=== PATIENT | female | born 1965 | race Caucasian/White ===

== ENCOUNTER 2018-01-20 13:03 | Day surgery (SDC) | payer BC ==
[2018-01-19 10:51] VITALS: BMI 22.3
[~2018-01-20 13:03] MED LIST: LACTATED RINGERS 1,000 ML IV SCH
[2018-01-20 13:24] VITALS: TEMP 98.6
[2018-01-20] MEDS ORDERED: LIDOCAINE 1% 20 ML VIAL (10MG/ML) FOR IV START SQ ONE (13:26)
[2018-01-20] MEDS ORDERED: GLUCAGON 1 MG/ML VIAL ONE (13:56)
[2018-01-20] MEDS ORDERED: PROPOFOL 10 MG/ML 20 ML VIAL IV ONE (13:56)
--- NOTE | 2018-01-20 13:58 | P.GSHP ---
History of Present Illness H&P Date: 01/20/18 Chief Complaint: Screening colonoscopy This a 52-year-old female referred from Dharmesh Christensen. Patient rents today for screening colonoscopy. She's never is had a colonoscopy before. Past Medical History Additional Past Medical History / Comment(s): migraines, History of Any Multi-Drug Resistant Organisms: None Reported Past Surgical History: Orthopedic Surgery Additional Past Surgical History / Comment(s): dionna wrist ganglion cyst Past Anesthesia/Blood Transfusion Reactions: Motion Sickness Smoking Status: Never smoker - Past Family History Mother Family Medical History: No Reported History Medications and Allergies Home Medications Medication Instructions Recorded Confirmed Type Paxil(Dose Unknown) 1 tab PO QAM 01/19/18 01/19/18 History SUMAtriptan SUCCINATE [Imitrex] 100 mg PO BID PRN 01/19/18 01/19/18 History Topiramate [Topamax] 100 mg PO HS 01/19/18 01/20/18 History Allergies Allergy/AdvReac Type Severity Reaction Status Date / Time Iodinated Contrast- Oral and Allergy Nausea & Verified 01/20/18 13:20 IV Dye Vomiting [Iodinated Contrast Media - IV Dye] Surgical - Exam Vital Signs Temp Pulse Resp BP Pulse Ox 98.6 F 77 16 134/82 97 01/20/18 13:24 01/20/18 13:24 01/20/18 13:24 01/20/18 13:24 01/20/18 13:24 - General well developed, no distress - Eyes PERRL - ENT normal pinna - Neck no masses - Respiratory normal expansion - Cardiovascular Rhythm: regular - Abdomen Abdomen: soft, non tender Assessment and Plan Plan: We'll perform screening colonoscopy
--- NOTE | 2018-01-20 14:21 | P.OP ---
Date of Procedure: 01/20/18 Preoperative Diagnosis: Screening colonoscopy Postoperative Diagnosis: Normal colonoscopy Procedure(s) Performed: Colonoscopy Anesthesia: MAC Surgeon: Andrey Spencer Pathology: none sent Condition: stable Disposition: PACU Description of Procedure: PROCEDURE: The patient was placed on the endoscopy table in the lateral position. Digital rectal examination was performed which revealed no abnormalities. The prostate was symmetrical without nodules. Flexible colonoscope was then placed in the patient's anus and passed throughout the entire colon. The ileocecal valve was visualized. The cecum, ascending, transverse, descending and sigmoid colon were normal. The rectum was normal as well. There were no masses, polyps or diverticula noted in the entire colon. SUMMARY OF FINDINGS: Normal colonoscopy.
[2018-01-20 14:34] VITALS: RESP 20
[2018-01-20 14:50] VITALS: BP 122/69; PULSE 70
== END 2018-01-20 14:52 | disposition home or self-care (01) ==
LOC: ORWHC2ENDO 13:03
PROVIDERS: ATTEND Surgery
DX: Z12.11 Encounter for screening for malignant neoplasm of colon (principal); G43.909 Migraine, unspecified, not intractable, without status migrainosus; Z91.041 Radiographic dye allergy status; Z79.899 Other long term (current) drug therapy
CPT/HCPCS: J1610; J2704; G0121

== ENCOUNTER 2018-05-21 19:13 | Emergency (ER) | payer BC ==
[2018-05-21] MEDS ORDERED: AMOXIC-POT CLAV 875-125MG 1 EACH TAB PO STA (19:31)
[2018-05-21] MEDS ORDERED: LORazepam 1 MG TAB PO STA (19:31)
[2018-05-21] MEDS ORDERED: DIPH,PERTUS(ACELL)TETVAC-LF 0.5 ML VIAL IM ONE (19:31)
[2018-05-21] MEDS ORDERED: IBUPROFEN 600 MG TAB PO STA (19:32)
--- NOTE | 2018-05-21 19:56 | ED ---
Animal Bite HPI - General Chief Complaint: Animal Bite Stated Complaint: dog bite Time Seen by Provider: 05/21/18 19:14 Source: patient, EMS, RN notes reviewed Mode of arrival: EMS Limitations: no limitations - History of Present Illness Initial Comments: This is a 52-year-old female who presents to the emergency department with chief complaint of dog bite. Patient was transported to the emergency department via EMS. 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 She states the dogs are up to date with vaccinations. She states that she keeps the dogs separate from her own dogs by keeping them in the laundry room. She was in the laundry room doing laundry and became upset when the two bulldogs were playing too hard. She began to calm down and believes the dogs "sensed her weakness." She states that one of the bulldogs jumped up on her chest and she realized the dog was no longer playing. She tried to jump up on the washing machine but the dog latched on to her right inner thigh then let go. She states that she was able to get the 2 dogs into the garage, however states that her phone was also in the garage. She states that she went outside to look for help but none of her neighbors were home. She was able to flag down a couple of cars going by on the road. EMS and police department were contacted. She states that she is not up to date with tetanus. States she feels shaken up. She is able to ambulate on her right leg. Denies fevers or chills, chest pain or shortness of breath, abdominal pain, nausea or vomiting. - Related Data Home Medications Medication Instructions Recorded Confirmed Paxil(Dose Unknown) 1 tab PO QAM 01/19/18 01/19/18 SUMAtriptan SUCCINATE [Imitrex] 100 mg PO BID PRN 01/19/18 01/19/18 Topiramate [Topamax] 100 mg PO HS 01/19/18 01/20/18 Previous Rx's Medication Instructions Recorded Amoxicillin/Potassium Clav 1 tab PO Q12HR #14 tab 05/21/18 [Augmentin 875-125 Tablet] Allergies Allergy/AdvReac Type Severity Reaction Status Date / Time Iodinated Contrast- Oral and Allergy Nausea & Verified 01/20/18 13:20 IV Dye Vomiting [Iodinated Contrast Media - IV Dye] Review of Systems ROS Statement: Those systems with pertinent positive or pertinent negative responses have been documented in the HPI. ROS Other: All systems not noted in ROS Statement are negative. Past Medical History Additional Past Medical History / Comment(s): migraines, History of Any Multi-Drug Resistant Organisms: None Reported Past Surgical History: Orthopedic Surgery Additional Past Surgical History / Comment(s): dionna wrist ganglion cyst Past Anesthesia/Blood Transfusion Reactions: Motion Sickness Past Psychological History: No Psychological Hx Reported Smoking Status: Never smoker - Past Family History Mother Family Medical History: No Reported History General Exam - General Exam Comments Initial Comments: General: Awake and alert, well-developed; in no apparent distress. Patient is shaky and anxious. HEENT: Head atraumatic, normocephalic. Pupils are equal, round and reactive to light. Extraocular movements intact. Oropharynx moist without erythema or exudate. Neck: Supple. Normal ROM. Cardiovascular: Regular rate and rhythm. No murmurs, rubs or gallops. Chest symmetrical. Respiratory: Lungs clear to auscultation bilaterally. No wheezes, rales or rhonchi. Normal respiratory effort with no use of accessory muscles. Musculoskeletal: Normal range of motion of the right lower extremity, however pain is elicited with lifting her leg off the bed and bending her right knee. Sensation is intact. Pedal pulses are 2+ equal and palpable bilaterally. Skin: There are two 1.0 cm puncture wounds and two 0.5 cm puncture wounds to the right medial thigh. Surrounding erythema and ecchymosis. There are 2 approximately 2 cm in length transverse puncture wounds distal posterior thigh. There is an approximately 1 cm puncture wound to the mid lateral aspect of the right calf. There is a superficial approximately 1 cm in length puncture wound to the proximal posteriorolateral right thigh with surrounding erythema and ecchymosis. Active bleeding of all punctures. Neurological: Alert and oriented x3. CN II-XII grossly intact. Speech is fluent and answers are appropriate. No focal neuro deficits. Psychiatric: Anxious. No overt signs of depression. Course Vital Signs 05/21/18 05/21/18 19:25 21:22 Temperature 98.1 F 98.6 F Pulse Rate 73 79 Respiratory 19 20 Rate Blood Pressure 189/77 123/73 O2 Sat by Pulse 97 97 Oximetry Procedures - Laceration Laceration #1 Consent Obtained: verbal consent Indication: laceration Site: lower extremity (puncture right inner thigh ) Size (cm): 1 Description: linear Depth: simple, single layer Anesthetic Used: lidocaine 1% Anesthesia Technique: local infiltration Amount (mls): 1 Pre-repair: wound explored, irrigated extensively, deep structures intact Type of Sutures: nylon Size of Sutures: 4-0 Number of Sutures: 1 Technique: simple, interrupted Complications: bleeding Patient Tolerated Procedure: well, no complications Laceration #2 Consent Obtained: verbal consent Indication: laceration Site: lower extremity (puncture right inner thigh) Size (cm): 1 Description: linear Depth: simple, single layer Anesthetic Used: lidocaine 1% Anesthesia Technique: local infiltration Amount (mls): 1 Pre-repair: wound explored, irrigated extensively, deep structures intact Type of Sutures: nylon Size of Sutures: 4-0 Number of Sutures: 1 Technique: simple, interrupted Complications: bleeding Laceration #3 Consent Obtained: verbal consent Indication: laceration Site: lower extremity (distal posterior right thigh ) Size (cm): 2 Description: linear Depth: simple, single layer Anesthetic Used: lidocaine 1% Anesthesia Technique: local infiltration Amount (mls): 1 Pre-repair: wound explored, irrigated extensively, deep structures intact Type of Sutures: nylon Size of Sutures: 4-0 Number of Sutures: 1 Technique: simple, interrupted Complications: bleeding Patient Tolerated Procedure: well, no complications Laceration #4 Consent Obtained: verbal consent Indication: laceration Site: lower extremity (right distal posterior thigh ) Size (cm): 2 Description: linear Depth: simple, single layer Anesthetic Used: lidocaine 1% Anesthesia Technique: local infiltration Amount (mls): 1 Pre-repair: wound explored, irrigated extensively, deep structures intact Type of Sutures: nylon Size of Sutures: 4-0 Number of Sutures: 1 Technique: simple, interrupted Complications: bleeding Patient Tolerated Procedure: well, no complications Laceration #5 Consent Obtained: verbal consent Indication: laceration Site: lower extremity (mid lateral right calf) Size (cm): 1 Description: linear Depth: simple, single layer Anesthetic Used: lidocaine 1% Anesthesia Technique: local infiltration Amount (mls): 1 Pre-repair: wound explored, irrigated extensively, deep structures intact Type of Sutures: nylon Size of Sutures: 4-0 Number of Sutures: 1 Technique: simple, interrupted Complications: bleeding Patient Tolerated Procedure: well, no complications Medical Decision Making - Medical Decision Making This is a 52-year-old female who presented to the emergency department for evaluation following a dog bite. Dog is up-to-date with vaccinations. Patient sustained multiple puncture wounds to the right thigh and one puncture wound to the right calf. There is diffuse ecchymosis and tenderness of the right thigh and calf. Patient is neurovascularly intact. Wounds were extensively irrigated with normal saline and iodine. Single loose sutures were placed in the larger puncture wounds for a total of 5 sutures. Recommended removal of sutures in 10-14 days. X-rays of the right femur, tibia and fibula revealed extensive soft tissue injury, however no acute osseous abnormalities. Patient was made up-to-date with tetanus vaccination. She was given pain medication and 1 dose of Augmentin. Vital signs are stable and patient is in no acute distress. She will be discharged home with further prescription for Augmentin. Patient is in agreement with plan and voices understanding. All questions answered. - Radiology Data Radiology results: report reviewed, image reviewed X-ray right femur impression: No osseous abnormality. Extensive soft tissue injury medial right lower thigh. X-ray right tibia and fibula impression: No acute osseous abnormality lower extremity. Mild soft tissue injury lateral leg may be present. As read by Dr. Case Disposition Clinical Impression: Dog bite Disposition: HOME SELF-CARE Condition: Good Instructions: Animal Bite (ED) Additional Instructions: Please take medications as prescribed. Please follow up with primary care provider within 1-2 days. Return to emergency department if symptoms should worsen or any concerns arise. Prescriptions: Amoxicillin/Potassium Clav [Augmentin 875-125 Tablet] 1 tab PO Q12HR #14 tab Is patient prescribed a controlled substance at d/c from ED?: No Referrals: Ginna Valdez DO [Primary Care Provider] - 1-2 days Time of Disposition: 21:30
[2018-05-21] MEDS ORDERED: KETOROLAC 30 MG/ML 1 ML VIAL IM STA (20:05)
--- NOTE | 2018-05-21 20:26 | XR ---
EXAMINATION TYPE: XR femur RT DATE OF EXAM: 05/21/2018 COMPARISON: NONE HISTORY: Right marked puncture wound dog bite TECHNIQUE: 2 view right femur FINDINGS: No acute fractures are evident. Extensive soft tissue injury along the medial lower extremi ty. No radiopaque foreign bodies are evident. IMPRESSION: 1. No osseous abnormality. 2. Extensive soft tissue injury medial right lower thigh
--- NOTE | 2018-05-21 20:27 | XR ---
EXAMINATION TYPE: XR tibia fibula RT DATE OF EXAM: 05/21/2018 COMPARISON: NONE HISTORY: Dog bite 5 leg TECHNIQUE: 2 view right tibia and fibula FINDINGS: Mild soft tissue injury may be lateral to the fibula. Tibia and fibula appear intact. No radiopaque foreign bodies are evident in the lower extremity. IMPRESSION: 1. No acute osseous abnormality lower extremity. 2. Mild soft tissue injury lateral leg may be present.
[2018-05-21 21:23] VITALS: BP 123/73; PULSE 79; RESP 20; TEMP 98.6
[2018-05-21] MEDS ORDERED: ACET/COD 300 MG/30 MG STARTER PACK 6 TAB BTL PO STA (21:30)
== END 2018-05-21 21:39 | disposition home or self-care (01) ==
LOC: EC 19:13
DX: S71.111A Laceration without foreign body, right thigh, initial encounter (principal); S81.811A Laceration without foreign body, right lower leg, initial encounter; G43.909 Migraine, unspecified, not intractable, without status migrainosus; Z79.899 Other long term (current) drug therapy; Z91.041 Radiographic dye allergy status; Z23 Encounter for immunization; Z53.20 Procedure and treatment not carried out because of patient's decision for unspecified reasons; W54.0XXA Bitten by dog, initial encounter; Y92.59 Other trade areas as the place of occurrence of the external cause; Y93.E2 Activity, laundry
CPT/HCPCS: 73552; 73590; 90715; 99284; 12002; 96372; 90471; J1885

== ENCOUNTER → 2018-12-30 | Outpatient (CLI) | payer BC ==
--- NOTE | 2019-01-03 12:00 | MM ---
Reason for exam: screening (asymptomatic). History: Took hormonal contraceptives for 8 years. Physical Findings: A clinical breast exam by your physician is recommended on an annual basis and results should be correlated with mammographic findings. MG Screening Mammo w CAD Bilateral CC and MLO view(s) were taken. No prior studies available for comparison. The breast tissue is extremely dense which could obscure a lesion on mammography. No significant findings. ASSESSMENT: Benign, BI-RAD 2 RECOMMENDATION: Routine screening mammogram of both breasts in 1 year.
== END | disposition home or self-care (01) ==
LOC: RADMAMWWP 08:49
PROVIDERS: ATTEND Family Medicine
DX: Z12.31 Encounter for screening mammogram for malignant neoplasm of breast (principal)
CPT/HCPCS: 77067

== ENCOUNTER 2019-08-11 18:09 | Emergency (ER) | payer BC ==
[2019-08-11 18:24] VITALS: BP 125/82; PULSE 70; RESP 18; TEMP 98.1
--- NOTE | 2019-08-11 18:54 | ED ---
General Adult HPI - General Chief complaint: Extremity Injury, Upper Stated complaint: kicked in arm by horse Time Seen by Provider: 08/11/19 18:28 Source: patient Limitations: no limitations - History of Present Illness Initial comments: Patient is a 53-year-old female presenting to emergency Department with a chief complaint of getting kicked by horse. Patient reports she was brushing her horse when he suddenly kicked her in the right forearm. Incident occurred about 2 hours ago Patient reports the cake was using the hind legs in an angulation. Patient reports the pain is a 2 at rest but exacerbated with supination. Patient denies any pain at the elbow or wrist. Patient denies any numbness or tingling. She does report tenderness at the right forearm. Patient denies taking any medication to alleviate his symptoms. - Related Data Home Medications Medication Instructions Recorded Confirmed Paxil(Dose Unknown) 1 tab PO QAM 01/19/18 01/19/18 SUMAtriptan SUCCINATE [Imitrex] 100 mg PO BID PRN 01/19/18 01/19/18 Topiramate [Topamax] 100 mg PO HS 01/19/18 01/20/18 Previous Rx's Medication Instructions Recorded Amoxicillin/Potassium Clav 1 tab PO Q12HR #14 tab 05/21/18 [Augmentin 875-125 Tablet] Allergies Allergy/AdvReac Type Severity Reaction Status Date / Time Iodinated Contrast- Oral and Allergy Nausea & Verified 08/11/19 18:20 IV Dye Vomiting [Iodinated Contrast Media - IV Dye] Review of Systems ROS Statement: Those systems with pertinent positive or pertinent negative responses have been documented in the HPI. ROS Other: All systems not noted in ROS Statement are negative. Past Medical History Additional Past Medical History / Comment(s): migraines, History of Any Multi-Drug Resistant Organisms: None Reported Past Surgical History: Orthopedic Surgery Additional Past Surgical History / Comment(s): dionna wrist ganglion cyst Past Anesthesia/Blood Transfusion Reactions: Motion Sickness Past Psychological History: No Psychological Hx Reported Smoking Status: Never smoker Past Alcohol Use History: None Reported Past Drug Use History: None Reported - Past Family History Mother Family Medical History: No Reported History General Exam Limitations: no limitations General appearance: alert, in no apparent distress Head exam: Present: atraumatic, normocephalic, normal inspection Eye exam: Present: normal appearance, PERRL, EOMI Pupils: Present: normal accommodation ENT exam: Present: normal exam, normal oropharynx, mucous membranes moist, TM's normal bilaterally, normal external ear exam Neck exam: Present: normal inspection, full ROM Respiratory exam: Present: normal lung sounds bilaterally Cardiovascular Exam: Present: regular rate, normal rhythm, normal heart sounds Extremities exam: Present: tenderness (Mild tenderness to palpation at the forearm. No radial head tenderness.), normal capillary refill. Absent: normal inspection (Contusion in the lateral aspect of her right forearm), full ROM (Limited range of motion with pronation in the right arm.), other (+2 dorsalis pedis and posterior tibialis bilaterally. +2 ulnar radial pulses bilaterally.) Back exam: Present: normal inspection, full ROM Neurological exam: Present: alert, oriented X3 Psychiatric exam: Present: normal affect, normal mood Skin exam: Present: warm, intact, normal color Course Vital Signs 08/11/19 18:20 Temperature 98.1 F Pulse Rate 70 Respiratory 18 Rate Blood Pressure 125/82 O2 Sat by Pulse 98 Oximetry Procedures - Orthopedic Splinting/Casting Injury #1 Side: right Upper Extremity Injury Location: short arm Upper Extremity Immobilizer: posterior splint, Shawn wrap, synthetic pre-padded splint Medical Decision Making - Medical Decision Making Patient is a 53-year-old female presenting to emergency Department with a chief complaint of getting kicked by a horse. Patient has full range of motion at the elbow and hand. Patient denies any numbness or tingling. Patient also reports family with supination. Patient was given morphine for pain. X-ray of the forearm is indicative of a nondisplaced ulnar fracture. No tenderness at the radial head. Long-arm posterior splint in place. Patient was to follow-up with orthopedics. Strict return parameters were thoroughly discussed the patient was understanding and agreeable. Case discussed with physician. Disposition Clinical Impression: Ulnar shaft fracture Disposition: HOME SELF-CARE Condition: Stable Instructions (If sedation given, give patient instructions): Arm Fracture in Adults (ED) Additional Instructions: Please follow up with orthopedics. Alternate between Tylenol and ibuprofen for pain control. Please return to emergency department if symptoms worsen. Is patient prescribed a controlled substance at d/c from ED?: No Referrals: Ginna Valdez DO [Primary Care Provider] - 1-2 days Hernandez Arceo MD [STAFF PHYSICIAN] - 1-2 days Time of Disposition: 19:52
[2019-08-11] MEDS: KETOROLAC 30 MG/ML 1 ML VIAL IM STA ×2 (19:33→19:51)
[2019-08-11] MEDS ORDERED: MORPHINE SULFATE 4 MG/ML SYRINGE IM STA (19:35)
[2019-08-11] MEDS ORDERED: ACET/COD 300 MG/30 MG STARTER PACK 6 TAB BTL PO STA (19:52)
--- NOTE | 2019-08-11 20:21 | XR ---
EXAMINATION TYPE: XR forearm RT DATE OF EXAM: 08/11/2019 COMPARISON: NONE HISTORY: 53 year-old female trauma and pain after kicked by horse TECHNIQUE: 2 views FINDINGS: Nondisplaced transverse fracture distal third ulnar shaft. No additional acute fracture or dislocatio n is seen. Possible widening at the scapholunate interval measuring 2.6 mm. IMPRESSION: 1. Nondisplaced transverse fracture distal third ulnar shaft. 2. Possible age indeterminate injury to the scapholunate ligament given widening at 2.6 mm.
== END 2019-08-11 20:07 | disposition home or self-care (01) ==
LOC: EC 18:09
DX: S52.601A Unspecified fracture of lower end of right ulna, initial encounter for closed fracture (principal); Z79.899 Other long term (current) drug therapy; Z91.041 Radiographic dye allergy status; W55.12XA Struck by horse, initial encounter
CPT/HCPCS: 99283; 29105; 96372; 73090; J2270

== ENCOUNTER → 2021-02-26 | Outpatient (CLI) | payer BC, OTHER | END | disposition home or self-care (01) | LOC: LABWHC1 13:02 | PROVIDERS: ATTEND Family Medicine | DX: U07.1 COVID-19 (principal); J06.9 Acute upper respiratory infection, unspecified | CPT/HCPCS: U0003; C9803; U0005 ==

== ENCOUNTER → 2022-01-08 | Outpatient (CLI) | payer OTHER ==
--- NOTE | 2022-01-08 11:58 | FL ---
EXAMINATION TYPE: FL barium swallow DATE OF EXAM: 01/08/2022 COMPARISON: None HISTORY: Dysphagia food getting stuck TECHNIQUE: A double air contrast esophagram study is performed. FINDINGS: Contrast passes through the esophagus without hesitancy. No intraluminal or extramural defects are ev ident. No reflux could be elicited during this examination with maneuvers. IMPRESSIONS: 1. No suspicious radiographic abnormalities on this esophagram
== END | disposition home or self-care (01) ==
LOC: RADUSWWP 10:53
PROVIDERS: ATTEND Surgery Plastic and Reconstructive Surgery
DX: R13.10 Dysphagia, unspecified (principal)
CPT/HCPCS: 74220

== ENCOUNTER → 2022-01-28 | Day surgery (SDC) | payer OTHER ==
[2022-01-26 15:46] VITALS: BMI 23.9
[~2022-01-28] MED LIST changes: -LACTATED RINGERS 1,000 ML IV SCH; +LIDOCAINE 1% (10MG/ML) FOR IV START INTRADERMA PRN; +LIDOCAINE 1% INJ 10MG/ML (20 ML MDV) ONE; +PROPOFOL 10 MG/ML 20 ML VIAL IV ONE
--- NOTE | 2022-01-28 07:43 | P.GSHP ---
History of Present Illness H&P Date: 01/28/22 CHIEF COMPLAINT: GERD HISTORY OF PRESENT ILLNESS: The patient is a 56-year-old female who presents reports gastroesophageal reflux disease. Upper endoscopy was offered for further evaluation and management. PAST MEDICAL HISTORY: Please see list. PAST SURGICAL HISTORY: Please see list. MEDICATIONS: Please see list. ALLERGIES: Please see list. SOCIAL HISTORY: No illicit drug use FAMILY HISTORY: No reports of Crohn disease or ulcerative colitis. REVIEW OF ORGAN SYSTEMS: CONSTITUTIONAL: No reports of fevers or chills. GI: Denies any blood in stools or constipation. PHYSICAL EXAM: VITAL SIGNS: Stable GENERAL: Well-developed and pleasant in no acute distress. HEENT: No scleral icterus. Extraocular movements grossly intact. Moist buccal mucosa. NECK: Supple without lymphadenopathy. CHEST: Unlabored respirations. Equal bilateral excursions. CARDIOVASCULAR: Regular rate and rhythm. Distal 2+ pulses. ABDOMEN: Soft, nondistended. MUSCULOSKELETAL: No clubbing, cyanosis, or edema. ASSESSMENT: 1. Gastroesophageal reflux disease PLAN: 1. Recommend proceeding with an upper endoscopy Past Medical History Additional Past Medical History / Comment(s): migraines, occ diff swallowing, rt cataract with lens implant History of Any Multi-Drug Resistant Organisms: None Reported Past Surgical History: Orthopedic Surgery Additional Past Surgical History / Comment(s): dionna wrist ganglion cyst, rt arm surgery for fx/plate Past Anesthesia/Blood Transfusion Reactions: Motion Sickness, Postoperative Nausea & Vomiting (PONV) Additional Past Anesthesia/Blood Transfusion Reaction / Comment(s): surgery for fx arm -came out vomiting for 16 hrs Smoking Status: Never smoker - Past Family History Mother Family Medical History: No Reported History Medications and Allergies Home Medications Medication Instructions Recorded Confirmed Type SUMAtriptan SUCCINATE [Imitrex] 100 mg PO BID PRN 01/19/18 01/26/22 History PARoxetine HCL [Paxil] 30 mg PO DAILY 01/26/22 01/26/22 History Topiramate [Topamax] 50 mg PO BID 01/26/22 01/26/22 History Allergies Allergy/AdvReac Type Severity Reaction Status Date / Time Iodinated Contrast Media Allergy Nausea & Verified 01/26/22 15:39 [Iodinated Contrast Media - Vomiting IV Dye]
[2022-01-28] MEDS: LACTATED RINGERS 1,000 ML IV SCH ×2 (08:05→08:57)
[2022-01-28 08:18] VITALS: TEMP 96.7
--- NOTE | 2022-01-28 09:00 | P.PCN ---
Date of Procedure: 01/28/22 Description of Procedure: PREOPERATIVE DIAGNOSIS: Gastroesophageal reflux disease Dysphagia POSTOPERATIVE DIAGNOSIS: Upper esophageal stenosis Gastroesophageal reflux disease with esophagitis Duodenitis OPERATION: Esophagogastroduodenoscopy with rigid dilator over the guidewire 51 Fr with dilation Esophagogastroduodenoscopy with cold forceps biopsies stomach/duodenum SURGEON: Jagruti Renteria MD ANESTHESIA: MAC. INDICATIONS: The patient is a 52-year-old female who presents with a history of g astroesophageal reflux disease and dysphagia of the throat. Benefits and risks of the procedure were described. Informed consent was obtained. DESCRIPTION: The patient was brought into the endoscopy suite and laid in the left lateral decubitus position. After a timeout was confirmed, the procedure was initiated. An Olympus gastroscope was passed into the posterior oropharynx where an upper esophageal stenosis was identified. The scope was passed down to the distal esophagus. To address the upper esophageal stenosis, rigid dilator over guidewire was selected. Next using an [place] rigid dilator, a guidewire was placed through the gastroscope. Next the scope was withdrawn. A 51-German rigid [place] dilator was passed carefully along the posterior oropharynx to 45 cm and left in place for 2-3 minutes stretch. The dilator was withdrawn including the guidewire. The scope was reentered along the posterior oropharynx with no findings of full- thickness tear of the upper esophageal sphincter. Additional findings below. Within the stomach, cold forceps biopsies were obtained for gastritis. Duodenitis was identified and biopsies obtained. The large esophageal valve was evaluated with Hill grade 2 lower esophageal valve. LA grade B erosive esophagitis was identified. No full-thickness injury was encountered. The GI tract was desufflated. The patient tolerated the procedure well. FINDINGS: Upper esophageal stenosis dilated 51-German rigid dilator Diaphragmatic hiatus at 38 cm from the incisors Squamocolumnar junction 38 cm from the incisors. Mild gastritis with cold forceps biopsies obtained Duodenum with mild duodenitis LA grade B erosive esophagitis Hill grade 2 lower esophageal valve. RECOMMENDATIONS: Omeprazole 40 mg daily for 2 weeks Plan - Discharge Summary New Discharge Prescriptions: Continue SUMAtriptan SUCCINATE [Imitrex] 100 mg PO BID PRN PRN Reason: migraines Topiramate [Topamax] 50 mg PO BID PARoxetine HCL [Paxil] 30 mg PO DAILY Discharge Medication List SUMAtriptan SUCCINATE [Imitrex] 100 mg PO BID PRN 01/19/18 [History] PARoxetine HCL [Paxil] 30 mg PO DAILY 01/26/22 [History] Topiramate [Topamax] 50 mg PO BID 01/26/22 [History] Follow up Appointment(s)/Referral(s): Jagruti Renteria MD [STAFF PHYSICIAN] - 02/16/22 Patient Instructions/Handouts: Esophageal Dilation (GEN) Activity/Diet/Wound Care/Special Instructions: Salt for gargle twice a day. Recommend warm beverages Discharge Disposition: HOME SELF-CARE
[2022-01-28 09:18] VITALS: RESP 15
[2022-01-28 09:19] VITALS: BP 103/67
[2022-01-28 09:30] VITALS: PULSE 63
== END | disposition home or self-care (01) ==
LOC: ORWHC2ENDO 07:57
PROVIDERS: ATTEND Surgery Plastic and Reconstructive Surgery
DX: K22.2 Esophageal obstruction (principal); K21.00 Gastro-esophageal reflux disease with esophagitis, without bleeding; K29.80 Duodenitis without bleeding; K29.70 Gastritis, unspecified, without bleeding; G43.909 Migraine, unspecified, not intractable, without status migrainosus; F32.A Depression, unspecified; Z98.41 Cataract extraction status, right eye; Z96.1 Presence of intraocular lens; Z98.890 Other specified postprocedural states; Z87.81 Personal history of (healed) traumatic fracture; Z79.899 Other long term (current) drug therapy; Z91.041 Radiographic dye allergy status
CPT/HCPCS: 88305; 43239; 43248; J2001; J2704; 43249

== ENCOUNTER 2023-04-13 10:11 | Day surgery (SDC) | payer OTHER ==
[2023-04-08 14:14] VITALS: BMI 25.2
--- NOTE | 2023-04-13 08:54 | P.GSHP ---
History of Present Illness H&P Date: 04/13/23 CHIEF COMPLAINT: GERD and colon screen HISTORY OF PRESENT ILLNESS: The patient is a 57-year-old female who presents with gastroesophageal reflux disease and need for colon screen. Upper and lower endoscopy were offered for further evaluation and management. PAST MEDICAL HISTORY: Please see list. PAST SURGICAL HISTORY: Please see list. MEDICATIONS: Please see list. ALLERGIES: Please see list. SOCIAL HISTORY: No illicit drug use FAMILY HISTORY: No reports of Crohn disease or ulcerative colitis. REVIEW OF ORGAN SYSTEMS: CONSTITUTIONAL: No reports of fevers or chills. GI: Denies any blood in stools or constipation. PHYSICAL EXAM: VITAL SIGNS: Stable GENERAL: Well-developed pleasant in no acute distress. HEENT: No scleral icterus. Extraocular movements grossly intact. Moist buccal mucosa. NECK: Supple without lymphadenopathy. CHEST: Unlabored respirations. Equal bilateral excursions. CARDIOVASCULAR: Regular rate and rhythm. Distal 2+ pulses. ABDOMEN: Soft, nondistended. MUSCULOSKELETAL: No clubbing, cyanosis, or edema. ASSESSMENT: 1. Gastroesophageal reflux disease 2. Colon screen. PLAN: 1. Recommend proceeding with an upper and lower endoscopy Past Medical History Additional Past Medical History / Comment(s): migraines, BLOOD IN STOOL History of Any Multi-Drug Resistant Organisms: None Reported Past Surgical History: Orthopedic Surgery Additional Past Surgical History / Comment(s): dionna wrist ganglion cyst, COLONOSCOPY, ORIF RT FOREARM Past Anesthesia/Blood Transfusion Reactions: Motion Sickness, Postoperative Nausea & Vomiting (PONV) Additional Past Anesthesia/Blood Transfusion Reaction / Comment(s): surgery for fx arm -came out vomiting for 16 hrs Smoking Status: Never smoker - Past Family History Mother Family Medical History: No Reported History Medications and Allergies Home Medications Medication Instructions Recorded Confirmed Type SUMAtriptan succinate [Imitrex] 100 mg PO BID PRN 01/19/18 04/08/23 History PARoxetine HCL [Paxil] 30 mg PO DAILY 01/26/22 04/08/23 History Allergies Allergy/AdvReac Type Severity Reaction Status Date / Time Iodinated Contrast Media Allergy Nausea & Verified 04/08/23 14:07 [Iodinated Contrast Media - Vomiting IV Dye]
[~2023-04-13 10:11] MED LIST changes: +LACTATED RINGERS 1,000 ML IV SCH; -LIDOCAINE 1% INJ 10MG/ML (20 ML MDV) ONE; -PROPOFOL 10 MG/ML 20 ML VIAL IV ONE
[2023-04-13 10:28] VITALS: TEMP 98.1
[2023-04-13] MEDS ORDERED: PROPOFOL 10 MG/ML 20 ML VIAL IV ONE (10:40)
--- NOTE | 2023-04-13 11:22 | P.PCN ---
Date of Procedure: 04/13/23 Description of Procedure: PREOPERATIVE DIAGNOSIS: Gastrointestinal bleeding POSTOPERATIVE DIAGNOSIS: Acute on chronic gastric ulcer with bleeding, generalized Diaphragmatic hiatal hernia Gastritis with bleeding Gastric polyps OPERATION: Esophagogastroduodenoscopy with biopsies along antrum, duodenum SURGEON: Jagruti Renteria MD ANESTHESIA: MAC. INDICATIONS: The patient is a 57-year-old female who presents with reflux disease. Benefits and risks of the procedure were described. Informed consent was obtained. DESCRIPTION: The patient was brought into the endoscopy suite and laid in the left lateral decubitus position. An Olympus gastroscope was passed along the posterior oropharynx down to the distal esophagus where the squamocolumnar junction was encountered at 34 cm from the incisors. The stomach was entered and no bile reflux was found. Additional findings are listed below. Biopsies with cold forceps were obtained of the antrum. The first through third portion of the duodenum was examined. Retroflexion of the scope confirmed Hill grade 2 lower esophageal valve. The squamocolumnar junction demonstrated LA grade B erosive esophagitis. The stomach was desufflated. The patient tolerated the procedure well. FINDINGS: Squamocolumnar junction 35 cm from the incisors. Diaphragmatic hiatus at 36 cm. Hiatal hernia, 1 cm Hill grade 2 lower esophageal valve. LA grade B erosive esophagitis. Acute on chronic diffuse gastric ulcers with active bleeding Gastritis with bleeding Biopsies obtained of duodenum and antrum Gastric polyps, benign, 3 mm gastric cardia RECOMMENDATIONS: Upper endoscopy as needed.
[2023-04-13 11:32] VITALS: BP 103/62; PULSE 71; RESP 16
--- NOTE | 2023-04-13 11:32 | P.PCN ---
Date of Procedure: 04/13/23 Description of Procedure: PREOPERATIVE DIAGNOSIS: Gastrointestinal bleeding POSTOPERATIVE DIAGNOSIS: History of gastrointestinal bleeding Colitis OPERATION: Colonoscopy to the cecum, ileocecal valve and appendiceal orifice. Colonoscopy with random biopsies for microscopic colitis SURGEON: Jagruti Renteria MD. ANESTHESIA: MAC. INDICATIONS: The patient is a 57-year-old female who presents with gastrointestinal bleeding. Benefits and risks were described and informed consent was obtained. DESCRIPTION OF PROCEDURE: The patient had undergone Sutab prep. The patient had been brought into the operating room and laid in the left lateral decubitus position. After adequate intravenous sedation, the rectum was examined with 2% lidocaine jelly. External hemorrhoids were encountered. The rectal tone was within normal limits. No lesions were palpated in the rectal vault. An Olympus colonoscope was advanced until the cecum, ileocecal valve and appendiceal orifice were clearly viewed. The prep was good. No scattered diverticulosis was encountered. The colon was highly redundant and abdominal wall pressure. No colonic polyps were found. Random biopsies with cold forceps were obtained for microscopic colitis. Retroflexion of the scope demonstrated grade 2 internal hemorrhoids without active bleeding or inflammation. The colon was desufflated. The patient had tolerated the procedure well. Withdrawal time was over 6 minutes. FINDINGS: Aronchick preparation quality scale 2 (1-5) Internal hemorrhoids, grade 2 External prolapsed hemorrhoids, grade 2 No arteriovenous malformations. No adenomatous polyps. Random biopsies obtained for microscopic colitis. The colon was highly redundant and abdominal wall pressure. RECOMMENDATIONS: Lower endoscopy in 10 years, 2032 Plan - Discharge Summary Discharge Rx Participant: No New Discharge Prescriptions: New Sucralfate [Carafate] 1 gm PO BID #30 tablet RX: Omeprazole [PriLOSEC] 40 mg PO DAILY #14 cap Continue RX: SUMAtriptan succinate [Imitrex] 100 mg PO BID PRN PRN Reason: migraines RX: PARoxetine HCL [Paxil] 30 mg PO DAILY Discharge Medication List RX: SUMAtriptan succinate [Imitrex] 100 mg PO BID PRN 01/19/18 [History] RX: PARoxetine HCL [Paxil] 30 mg PO DAILY 01/26/22 [History] RX: Omeprazole [PriLOSEC] 40 mg PO DAILY #14 cap 04/13/23 [Rx] Sucralfate [Carafate] 1 gm PO BID #30 tablet 04/13/23 [Rx] Follow up Appointment(s)/Referral(s): Jagruti Renteria MD [STAFF PHYSICIAN] - 04/26/23 3:00 pm Patient Instructions/Handouts: *Surgery [facility] - (Anesthesia) Discharge Instructions Outpatient Surgery, Peptic Ulcer (DC), Gastritis (ED), Colonoscopy (DC), Upper Endoscopy (DC) Activity/Diet/Wound Care/Special Instructions: Repeat colonoscopy 10 years, 2032 Discharge Disposition: HOME SELF-CARE
== END 2023-04-13 12:04 | disposition home or self-care (01) ==
LOC: ORWHC2ENDO 10:11
PROVIDERS: ATTEND Surgery Plastic and Reconstructive Surgery
DX: K29.50 Unspecified chronic gastritis without bleeding (principal); K29.80 Duodenitis without bleeding; K31.7 Polyp of stomach and duodenum; K25.4 Chronic or unspecified gastric ulcer with hemorrhage; K64.4 Residual hemorrhoidal skin tags; K44.9 Diaphragmatic hernia without obstruction or gangrene; K21.00 Gastro-esophageal reflux disease with esophagitis, without bleeding; K64.1 Second degree hemorrhoids; Z98.890 Other specified postprocedural states; Z79.899 Other long term (current) drug therapy
CPT/HCPCS: 45380; 43239; J2704; 88305

== ENCOUNTER → 2024-01-31 | Outpatient (CLI) | payer OTHER ==
--- NOTE | 2024-01-31 11:12 | FL ---
ESOPHOGRAM. HISTORY: Dysphagia Esophagram was performed per the air contrast technique. The patient swallowed barium and effervesce nt crystals without difficulty or delay. Esophageal peristalsis and motility appear to be within normal limits. There is no evidence for filling defect, mass or diverticulum. Small reducible sliding type hiatal hernia. Subsequently single contrast cervical esophagram was performed which fails demonstrate evidence for a spiration penetration or mass. IMPRESSION: Small reducible sliding type hiatal hernia.
== END | disposition home or self-care (01) ==
LOC: RADUSWWP 09:54
PROVIDERS: ATTEND Family Medicine
DX: K44.9 Diaphragmatic hernia without obstruction or gangrene (principal); J39.2 Other diseases of pharynx
CPT/HCPCS: 74220

== ENCOUNTER → 2024-02-08 | Outpatient (CLI) | payer OTHER ==
--- NOTE | 2024-02-08 18:40 | MM ---
Reason for Exam: Screening (asymptomatic). Last mammogram was performed 5 year(s) and 1 month(s) ago. Patient History: Menarche at age 12. First Full-Term at age 31. Late child-bearing (after 31). Postmenopausal. Patient has history of breast feeding. Patient used Hormonal Contraceptives for 8 years. Risk Values: Codie 5 year model risk: 1.9%. NCI Lifetime model risk: 11.7%. Prior Study Comparison: 12/30/2018 Bilateral Screening Mammogram, [facility]. Tissue Density: The breasts are heterogeneously dense, which may obscure small masses. Findings: Analyzed By CAD. There is no suspicious group of microcalcifications or new suspicious mass in either breast. Overall Assessment: Negative, BI-RAD 1 Management: Screening Mammogram of both breasts in 1 year. . Patient should continue monthly self-breast exams. A clinical breast exam by your physician is recommended on an annual basis. This exam should not preclude additional follow-up of suspicious palpable abnormalities. Note on Codie scores and lifetime risk: 1. A Codie score greater than 3% is considered moderate risk. If this is the case, consider specialist referral to assess eligibility for a risk reducing agent. 2. If overall lifetime risk for the development of breast cancer is 20% or higher, the patient may qualify for future screening with alternating mammogram and breast MRI. Electronically signed and approved by: Chuck Lezama M.D. Radiologist
== END | disposition home or self-care (01) ==
LOC: RADMAMWWP 08:51
PROVIDERS: ATTEND Family Medicine
DX: Z12.31 Encounter for screening mammogram for malignant neoplasm of breast (principal); Z78.0 Asymptomatic menopausal state
CPT/HCPCS: 77067

== ENCOUNTER 2024-07-10 09:31 | Emergency (ER) | payer OTHER ==
[2024-07-10] MEDS ORDERED: SODIUM CHLORIDE 0.9% 1,000 ML BAG ONE (09:32)
[2024-07-10] MEDS ORDERED: ONDANSETRON 4 MG/2 ML VIAL ONE (09:43)
[2024-07-10] MEDS ORDERED: KETOROLAC 15 MG/ML 1 ML VIAL ONE (09:43)
[2024-07-10] MEDS ORDERED: HYDROmorphone 0.5 MG/0.5 ML SYRINGE ONE (14:23)
--- NOTE | 2024-08-06 16:45 | CT ---
Patient Irma Angulo ID [id number] Order # Procedure RENAL STONE EXAMINATION TYPE: CT abdomen pelvis wo con CT DLP: 400 mGycm, Automated exposure control for dose reduction was used. DATE OF EXAM: 07/10/2024 2:33 PM COMPARISON: THIS EXAM WAS READ DURING PACS DOWNTIME, NO PRIORS AVAILABLE. CLINICAL INDICATION: Abd pain, N&V. Hx abd pain lower abd. TECHNIQUE: Axial CT abdomen pelvis wo con;Sagittal and coronal reformats were created on a separate workstation. Contrast used: mL of , (none if empty) Oral contrast used: (none if empty) FINDINGS: LOWER CHEST: Unremarkable ABDOMEN LIVER: Unremarkable GALLBLADDER AND BILE DUCTS: Unremarkable. PANCREAS: Unremarkable. SPLEEN: Unremarkable. ADRENAL GLANDS: Unremarkable. KIDNEYS AND URETERS: No evidence of hydronephrosis or renal calculus. The ureters are unremarkable. PELVIS BLADDER: Unremarkable REPRODUCTIVE: Unremarkable. ABDOMEN & PELVIS STOMACH AND BOWEL: No evidence of bowel obstruction. The appendix is normal. Large amount stool throu ghout colon. PERITONEUM/RETROPERITONEUM: No evidence of pneumoperitoneum or free fluid. VASCULATURE: No evidence of aortic aneurysm. MUSCULOSKELETAL: No acute osseous abnormalities LYMPH NODES: No gross evidence for lymphadenopathy. SOFT TISSUE/ABDOMINAL WALL: Unremarkable IMPRESSION: * No obstructive uropathy or renal calculus. The appendix is normal. No obvious acute abdominal proc ess. * Large amount stool throughout the colon.
== END 2024-07-10 16:57 | disposition home or self-care (01) ==
LOC: EC 09:31
DX: K59.00 Constipation, unspecified (principal)
CPT/HCPCS: 74176; 96361; 96374; 96375; 99284